=== PATIENT | female | born 1995 ===

== ENCOUNTER 2017-08-20 17:31 | Emergency (ER) | payer MEDICAID, OTHER ==
[2017-08-20 17:44] VITALS: BP 111/73; PULSE 60; RESP 18; O2SAT 100
--- NOTE | 2017-08-20 17:49 | ED PDOC ---
HPI: Dental Pain/Injury Time Seen by Provider: 08/20/17 17:44 Chief Complaint (Nursing): Dental Pain Chief Complaint (Provider): Dental Pain History Per: Patient History/Exam Limitations: no limitations Onset/Duration Of Symptoms: Days (x1 week) Current Symptoms Are (Timing): Still Present Additional Complaint(s): 22 y/o female with no significant PMHx presenting for evaluation of right lower mandible gingival pain and swelling for x1 week. Patient reports she is 8 weeks . She also reports taking 1 tab of Tylenol at 13:00 today with no relief , but is unsure of dosage. Patient denies abdominal pain or vaginal bleeding, no fever or chills. She is tolerating liquids and solids. PMD: None Past Medical History Reviewed: Historical Data, Nursing Documentation, Vital Signs Vital Signs: Last Vital Signs Temp 98.1 F 08/20/17 17:41 Pulse 60 08/20/17 17:41 Resp 18 08/20/17 17:41 BP 111/73 08/20/17 17:41 Pulse Ox 100 08/20/17 17:41 - Medical History PMH: No Chronic Diseases - Surgical History Surgical History: No Surg Hx - Family History Family History: States: No Known Family Hx - Living Arrangements Living Arrangements: With Family - Social History Current smoker - smoking cessation education provided: No Alcohol: None Drugs: Denies - Home Medications Home Medications: Ambulatory Orders Medication Instructions Recorded Famotidine [Pepcid] 20 mg PO BID #14 tab 04/21/17 Pantoprazole Sodium [Protonix] 40 mg PO DAILY #20 ect 04/21/17 Amoxicillin 875 mg PO BID #14 tab 08/20/17 - Allergies Allergies/Adverse Reactions: Allergies Allergy/AdvReac Type Severity Reaction Status Date / Time No Known Allergies Allergy Verified 08/20/17 17:41 Review of Systems ROS Statement: Except As Marked, All Systems Reviewed And Found Negative Constitutional: Negative for: Fever, Chills ENT: Positive for: Mouth Pain (right lower mandible) Gastrointestinal: Negative for: Nausea, Vomiting Neurological: Negative for: Headache, Dizziness Physical Exam - Reviewed Nursing Documentation Reviewed: Yes Vital Signs Reviewed: Yes - Physical Exam Appears: Positive for: Well, Non-toxic, No Acute Distress Skin: Positive for: Normal Color. Negative for: Rash Eye Exam: Positive for: Normal appearance ENT: Positive for: Other (mild gingival swelling and tenderness to right lower mandible consistent with gingivitis, no discrete abscess noted, overall dentition intact, airway patent, uvula midline) Neurologic/Psych: Positive for: Alert, Oriented - ECG O2 Sat by Pulse Oximetry: 100 (RA) Pulse Ox Interpretation: Normal Medical Decision Making Medical Decision Makin:49 Impression: 22 y/o female with gingivitis Plan: -Tylenol 975mg PO Patient will be discharged with Rx for Amoxicillin and advised to continue taking Tylenol for pain management. Advised to follow up with dental clinic. Return for any new or worsening symptoms. Scribe Attestation: Documented by Dayton Singleton, acting as a scribe for Nanda Cifuentes PA-C. Provider Scribe Attestation: All medical record entries made by the scribe were at my direction and personally dictated by me. I have reviewed the chart and agree that the record accurately reflects my personal performance of the history, physical exam, medical decision making, and the department course for this patient. I have also personally directed, reviewed, and agree with the discharge instructions and disposition. Disposition - Clinical Impression Clinical Impression: Gingivitis - Patient ED Disposition Is Patient to be Admitted: No Counseled Patient/Family Regarding: Diagnosis, Need For Followup, Rx Given - [facility] Disposition: Routine/Home Disposition Time: 17:50 Condition: STABLE Additional Instructions: Take 2 or 3 325 mg tylenol tabs every 4-6 hours as needed for pain OR 1-2 650 mg tylenol tabs every 4-6 hrs for pain. Take antibiotics as directed. Soft foods and liquids only. Follow-up with dental clinic. Prescriptions: Amoxicillin 875 mg PO BID #14 tab Instructions: Gingivitis (DC) Forms: Pembe Panjur (Turkmen)
[2017-08-20 18:08] VITALS: TEMP 98.2
== END 2017-08-20 18:07 | disposition home or self-care (01) ==
LOC: H.ER 17:31
DX: O26.91 Pregnancy related conditions, unspecified, first trimester (principal); K05.10 Chronic gingivitis, plaque induced; Z3A.08 8 weeks gestation of pregnancy